=== PATIENT | female | born 1965 | race African-American/Black ===

== ENCOUNTER 2016-10-27 02:43 | Emergency (ER) | payer OTHER ==
[~2016-10-27] VITALS: Ht 152.4 cm; Wt 88.4 kg
[~2016-10-27 02:43] MED LIST: DURAGESIC100 MCG PO; IMODIUM A-D2 MG PO; K-DUR20 MEQ PO; LOMOTIL TABLET1 EACH PO; LOVENOX40 MG/0.4 PO; MAGNESIUM200 MG PO; NORVASC5 MG PO; PHENERGAN12.5 M1 PO; XANAX0.5 MG PO
[2016-10-27] MEDS ORDERED: MEDROL DOSEPAK4 MG PO (04:30)
[2016-10-27 04:43] VITALS: BP 160/70
== END 2016-10-27 04:44 | disposition home or self-care (01) ==
LOC: EME 02:43
DX: T78.40XA Allergy, unspecified, initial encounter (principal); L50.9 Urticaria, unspecified; I10 Essential (primary) hypertension; F17.200 Nicotine dependence, unspecified, uncomplicated; Z86.718 Personal history of other venous thrombosis and embolism; Z93.3 Colostomy status; Z87.442 Personal history of urinary calculi; Z88.6 Allergy status to analgesic agent; Z88.1 Allergy status to other antibiotic agents; Z71.6 Tobacco abuse counseling
CPT/HCPCS: 71010; 99281; 99283; J1100; J1200; J7040

== ENCOUNTER 2016-12-06 11:50 | Emergency (ER) | payer OTHER ==
[~2016-12-06] VITALS: Ht 152.4 cm; Wt 87.0 kg
[~2016-12-06 11:50] MED LIST changes: +MEDROL DOSEPAK4 MG PO
[2016-12-06 13:03] LABS: ADD MIUA? YES; BILIRUBIN NEGATIVE; BLOOD LARGE; COLOR YELLOW ((YELLOW)); GLUCOSE (STRIP) NEGATIVE; KETONES NEGATIVE; LEUKOCYTES NEGATIVE; NITRITE NEGATIVE; PROTEIN (STRIP) 30; SPECIFIC GRAVITY 1.023 (1.000-1.030); UROBILINOGEN 0.2 MG/DL (0.2-1.0)
[2016-12-06 13:32] LABS: BACTERIA NONE SEEN /HPF; EPITHELIAL CELLS RARE /HPF; MUCUS NONE SEEN /LPF; RED BLOOD CELLS 20-30 /HPF (0-5); UCUL ADDED? NO; WHITE BLOOD CELLS 0-5 /HPF (0-5)
[2016-12-06 13:34] LABS: HEMATOCRIT 38.5 % (36.0-46.0); MCH 26.9 PG (29.0-34.0); MCHC 32.5 G/DL (30.0-36.0); MCV 82.8 FL (83-99); MEAN PLAT.VOLUME 9.4 uM^3 (9.5-12.4); PLATELET COUNT 233 K/uL (156-360); RBC DIS.WIDTH-CV 15.1 % (11.8-14.6); RBC DIS.WIDTH-SD 45.2 % (39-53); RED BLOOD COUNT 4.65 M/uL (3.80-5.20); WHITE BLOOD COUNT 7.7 K/uL (4.1-10.2)
[2016-12-06 13:44] LABS: CHLORIDE 107 mEq/L (99-109); POTASSIUM 3.8 mEq/L (3.7-5.4); SODIUM 142 mEq/L (136-147)
[2016-12-06 13:46] LABS: GLUCOSE 98 mg/dL (70-99)
[2016-12-06 13:47] LABS: ANION GAP 10 MEQ/L (2-14)
[2016-12-06 13:48] LABS: TOTAL BILIRUBIN 0.5 mg/dL (0.0-1.0)
[2016-12-06 13:50] LABS: ALKALINE PHOSPHATASE 70 IU/L (3-129); GFR ESTIMATE (CALCULATED) > 59 mL/min/
[2016-12-06 13:51] LABS: UREA NITROGEN (BUN) 12 mg/dL (9-23)
[2016-12-06 13:53] LABS: LIPASE 38 U/L (1.0-51.0)
[2016-12-06 14:02] LABS: QUANTITATIVE HCG < 4.0 MIU/ML
[2016-12-06] MEDS ORDERED: KEFLEX500 MG PO (16:28)
[2016-12-06] MEDS ORDERED: PYRIDIUM100 MG PO (16:28)
[2016-12-06] MEDS ORDERED: OXAYDO5 MG PO (16:28)
[2016-12-06] MEDS ORDERED: PROMETHAZINE HC25 M1 PO (16:30)
[2016-12-06 17:01] VITALS: BP 141/80
== END 2016-12-06 17:15 | disposition home or self-care (01) ==
LOC: EME 11:50
DX: N20.0 Calculus of kidney (principal); I10 Essential (primary) hypertension; Z87.442 Personal history of urinary calculi; Z86.711 Personal history of pulmonary embolism; K50.90 Crohn's disease, unspecified, without complications; F17.200 Nicotine dependence, unspecified, uncomplicated; Z71.6 Tobacco abuse counseling; Z93.2 Ileostomy status
CPT/HCPCS: 74176; 80053; 81003; 83690; 84702; 85027; 87086; 99281; 99285; J0696; J2270; J7050; Q0169

== ENCOUNTER 2016-12-08 21:32 | Emergency (ER) | payer OTHER ==
[~2016-12-08] VITALS: Ht 152.4 cm; Wt 85.6 kg
[~2016-12-08 21:32] MED LIST changes: +KEFLEX500 MG PO; +OXAYDO5 MG PO; +PROMETHAZINE HC25 M1 PO; +PYRIDIUM100 MG PO
[2016-12-08 21:34] VITALS: BP 161/120
== END 2016-12-08 21:40 | disposition left against medical advice (07) ==
LOC: EME 21:32
DX: H57.9 Unspecified disorder of eye and adnexa (principal); Z53.21 Procedure and treatment not carried out due to patient leaving prior to being seen by health care provider
CPT/HCPCS: 99281; 99282

== ENCOUNTER 2017-01-09 01:01 | Inpatient (IN) | payer OTHER ==
[~2017-01-09] VITALS: Ht 152.4 cm; Wt 85.0 kg
[2017-01-09 03:14] LABS: EOSINOPHIL (%) 3.9 % (0-5); EOSINOPHIL COUNT 0.4 K/uL (0-0.3); HEMATOCRIT 28.2 % (36.0-46.0); IMMATURE GRANULOCYTE (%) 0.3 % (0.0-0.7); INSTRUMENT ABS NEUTROPHIL CT 5.1 K/uL; LYMPHOCYTE COUNT 2.8 K/uL (1.0-2.8); MCH 25.6 PG (29.0-34.0); MCHC 30.5 G/DL (30.0-36.0); MCV 83.9 FL (83-99); MEAN PLAT.VOLUME 9.6 uM^3 (9.5-12.4); MONOCYTE (%) 8.2 % (3-12); MONOCYTE COUNT 0.7 K/uL (0-0.8); NEUTROPHIL (%) 56.2 % (45-76); NEUTROPHIL COUNT 5.1 K/uL (1.8-6.4); PLATELET COUNT 332 K/uL (156-360); RBC DIS.WIDTH-CV 15.6 % (11.8-14.6); RBC DIS.WIDTH-SD 45.9 % (39-53); RED BLOOD COUNT 3.36 M/uL (3.80-5.20); WHITE BLOOD COUNT 9.1 K/uL (4.1-10.2)
[2017-01-09 03:23] LABS: CHLORIDE 104 mEq/L (99-109); POTASSIUM 2.9 mEq/L (3.7-5.4); SODIUM 142 mEq/L (136-147)
[2017-01-09 03:24] LABS: GLUCOSE 94 mg/dL (70-99)
[2017-01-09 03:26] LABS: ANION GAP 13 MEQ/L (2-14)
[2017-01-09 03:28] LABS: TOTAL BILIRUBIN 0.7 mg/dL (0.0-1.0)
[2017-01-09 03:28] LABS: GFR ESTIMATE (CALCULATED) > 59 mL/min/
[2017-01-09 03:29] LABS: UREA NITROGEN (BUN) 6 mg/dL (9-23)
[2017-01-09 03:29] LABS: ALKALINE PHOSPHATASE 61 IU/L (3-129)
[2017-01-09 03:31] LABS: DIRECT BILIRUBIN 0.4 mg/dL (0.0-0.3)
[2017-01-09 03:32] LABS: LIPASE 10 U/L (1.0-51.0)
[2017-01-09 03:47] LABS: INFLUENZA A VIRAL ANTIGEN NEGATIVE; INFLUENZA B VIRAL ANTIGEN NEGATIVE
[2017-01-09 03:57] LABS: ADD MIUA? YES; BILIRUBIN NEGATIVE; BLOOD MODERATE; COLOR YELLOW ((YELLOW)); GLUCOSE (STRIP) NEGATIVE; KETONES NEGATIVE; LEUKOCYTES MODERATE; NITRITE NEGATIVE; PROTEIN (STRIP) 30; SPECIFIC GRAVITY 1.009 (1.000-1.030); UROBILINOGEN 0.2 MG/DL (0.2-1.0)
[2017-01-09 04:17] LABS: EPITHELIAL CELLS 1+ /HPF; MUCUS RARE /LPF; RED BLOOD CELLS TNTC /HPF (0-5); WHITE BLOOD CELLS 20-30 /HPF (0-5)
[2017-01-09 04:18] LABS: BACTERIA 1+ /HPF; CASTS NONE SEEN /LPF; CRYSTALS NONE SEEN; UCUL ADDED? NO
[2017-01-09 12:11] LABS: MCV 84.1 FL (83-99)
[2017-01-09 12:24] LABS: CHLORIDE 108 mEq/L (99-109); POTASSIUM 3.1 mEq/L (3.7-5.4); SODIUM 142 mEq/L (136-147)
[2017-01-09 12:26] LABS: GLUCOSE 90 mg/dL (70-99)
[2017-01-09 12:27] LABS: ANION GAP 9 MEQ/L (2-14)
[2017-01-09 12:29] LABS: GFR ESTIMATE (CALCULATED) > 59 mL/min/
[2017-01-09 12:30] LABS: UREA NITROGEN (BUN) 5 mg/dL (9-23)
[2017-01-09] MEDS ORDERED: TAMSULOSIN HCL0.4 MG PO (12:52)
[2017-01-09] MEDS ORDERED: PYRIDIUM200 MG PO (12:52)
[2017-01-09] MEDS ORDERED: ALPRAZOLAM0.25 M2 PO (12:53)
[2017-01-09] MEDS ORDERED: AMLODIPINE BESY10 MG PO (12:54)
[2017-01-09] MEDS ORDERED: AZATHIOPRINE50 MG PO (12:54)
[2017-01-09] MEDS ORDERED: ELIQUIS2.5 MG PO (12:54)
[2017-01-09] MEDS ORDERED: CLONIDINE1 EACH TD (12:55)
[2017-01-09] MEDS ORDERED: FENTANYL1 EAC3 TD (12:56)
[2017-01-09] MEDS ORDERED: FUROSEMIDE20 MG PO (12:57)
[2017-01-09] MEDS ORDERED: HUMALOG100 UNIT/2 SC (12:58)
[2017-01-09] MEDS ORDERED: ANUSOL-HC21 GM PR (12:58)
[2017-01-09] MEDS ORDERED: LOPERAMIDE2 M1 PO (12:59)
[2017-01-09] MEDS ORDERED: MAGNESIUM400 MG PO (13:00)
[2017-01-09] MEDS ORDERED: PENTASA500 MG PO (13:01)
[2017-01-09] MEDS ORDERED: NYSTATIN60 GM TP (13:03)
[2017-01-09] MEDS ORDERED: BENICAR40 MG PO (13:03)
[2017-01-09] MEDS ORDERED: PANTOPRAZOLE SO40 MG PO (13:04)
[2017-01-09] MEDS ORDERED: ROXICODONE5 MG PO (13:04)
[2017-01-09] MEDS ORDERED: POTASSIUM CHLO20 ME2 PO (13:05)
[2017-01-09] MEDS ORDERED: PROMETHAZINE HC25 M1 PO (13:06)
[2017-01-09] MEDS ORDERED: ENTYVIO300 MG IV (13:06)
[2017-01-09] MEDS ORDERED: ZOLPIDEM TARTRA10 MG PO (13:07)
[2017-01-09] MEDS ORDERED: CLONIDINE HCL0.2 MG PO (13:10)
[2017-01-09 13:59] VITALS: BP 140/92
[2017-01-09 14:40] LABS: MAGNESIUM 1.5 mg/dL (1.3-2.7)
[2017-01-09 16:00] VITALS: BP 132/94
[2017-01-09 21:05] VITALS: BP 143/75
[2017-01-09 23:55] VITALS: BP 120/55
[2017-01-10 04:35] VITALS: BP 146/80
[2017-01-10 05:37] VITALS: BP 146/80
== END 2017-01-10 06:32 | disposition left against medical advice (07) | DRG 694 ==
LOC: EME 01:01 → EDOF 06:31 → 2EAST 06:31
PROVIDERS: Emergency Medicine; Internal Medicine; Nurse Practitioner Adult Health
DX: N20.0 Calculus of kidney (principal); K50.90 Crohn's disease, unspecified, without complications; E87.6 Hypokalemia; D64.9 Anemia, unspecified; I16.0 Hypertensive urgency; I10 Essential (primary) hypertension; G40.909 Epilepsy, unspecified, not intractable, without status epilepticus; F32.9 Major depressive disorder, single episode, unspecified; E66.9 Obesity, unspecified; F17.210 Nicotine dependence, cigarettes, uncomplicated; Z96.0 Presence of urogenital implants; Z86.711 Personal history of pulmonary embolism; Z95.828 Presence of other vascular implants and grafts; Z93.2 Ileostomy status; Z79.01 Long term (current) use of anticoagulants; Z88.2 Allergy status to sulfonamides; Z88.1 Allergy status to other antibiotic agents; Z87.442 Personal history of urinary calculi
CPT/HCPCS: 74176; 80048; 80048 91; 80053; 80076; 81003; 83605; 83690; 83735; 85014; 85018; 85025; 85027; 87040; 87502; 87651 90; 93005; 99281; 99285; J0696; J1200; J1644; J2060; J2270; J3010; J3475; J3480; J7030; J7050; J7500

== ENCOUNTER 2017-02-22 21:57 | Inpatient (IN) | payer OTHER ==
[~2017-02-22] VITALS: Ht 152.4 cm; Wt 80.0 kg
[~2017-02-22 21:57] MED LIST changes: +ALPRAZOLAM0.25 M2 PO; +AMLODIPINE BESY10 MG PO; +ANUSOL-HC21 GM PR; +AZATHIOPRINE50 MG PO; +BENICAR40 MG PO; +CLONIDINE HCL0.2 MG PO; +CLONIDINE1 EACH TD; +ELIQUIS2.5 MG PO; +ENTYVIO300 MG IV; +FENTANYL1 EAC3 TD; +FUROSEMIDE20 MG PO; +HUMALOG100 UNIT/2 SC; +LOPERAMIDE2 M1 PO; +MAGNESIUM400 MG PO; +NYSTATIN60 GM TP; +PANTOPRAZOLE SO40 MG PO; +PENTASA500 MG PO; +POTASSIUM CHLO20 ME2 PO; +PYRIDIUM200 MG PO; +ROXICODONE5 MG PO; +TAMSULOSIN HCL0.4 MG PO; +ZOLPIDEM TARTRA10 MG PO
[2017-02-22 23:55] LABS: HEMATOCRIT 37.2 % (36.0-46.0); MCH 27.3 PG (29.0-34.0); MCHC 32.3 G/DL (30.0-36.0); MCV 84.7 FL (83-99); MEAN PLAT.VOLUME 9.4 uM^3 (9.5-12.4); PLATELET COUNT 184 K/uL (156-360); RBC DIS.WIDTH-SD 55.4 % (39-53); RED BLOOD COUNT 4.39 M/uL (3.80-5.20); WHITE BLOOD COUNT 9.7 K/uL (4.1-10.2)
[2017-02-22 23:56] LABS: TROP-I INTERPRETATION NEGATIVE; TROPONIN-I < 0.01 ng/mL (0.0-0.30)
[2017-02-22 23:57] LABS: INTER. NORMALIZED RATIO 1.2; PROTHROMBIN TIME 12.7 (9.2-11.2); PTT 22.7 (25-32)
[2017-02-23 00:06] LABS: CHLORIDE 108 mEq/L (99-109); SODIUM 142 mEq/L (136-147)
[2017-02-23 00:08] LABS: MAGNESIUM 0.9 mg/dL (1.3-2.7); POTASSIUM 2.4 mEq/L (3.7-5.4)
[2017-02-23 00:09] LABS: GLUCOSE 89 mg/dL (70-99)
[2017-02-23 00:10] LABS: ANION GAP 13 MEQ/L (2-14)
[2017-02-23 00:12] LABS: ALKALINE PHOSPHATASE 71 IU/L (3-129); GFR ESTIMATE (CALCULATED) > 59 mL/min/
[2017-02-23 00:13] LABS: UREA NITROGEN (BUN) 8 mg/dL (9-23)
[2017-02-23 00:16] LABS: LIPASE 14 U/L (1.0-51.0)
[2017-02-23 00:53] LABS: D-DIMER ELISA 2.28 mg/L FEU (< 0.57)
[2017-02-23 01:40] LABS: ADD MIUA? YES; BILIRUBIN NEGATIVE; BLOOD SMALL; COLOR STRAW ((YELLOW)); GLUCOSE (STRIP) NEGATIVE; KETONES NEGATIVE; LEUKOCYTES NEGATIVE; NITRITE NEGATIVE; PROTEIN (STRIP) NEGATIVE; SPECIFIC GRAVITY 1.008 (1.000-1.030); UROBILINOGEN 0.2 MG/DL (0.2-1.0)
[2017-02-23 01:43] LABS: BACTERIA 1+ /HPF; EPITHELIAL CELLS RARE /HPF; MUCUS NONE SEEN /LPF; RED BLOOD CELLS 0-5 /HPF (0-5); UCUL ADDED? NO; WHITE BLOOD CELLS 0-5 /HPF (0-5)
[2017-02-23 04:55] LABS: AMPHETAMINES QUANT VALUE 0 NG/ML; BARBITUATES QUANT VALUE 0 NG/ML; BENZODIAZEPINES QUANT VALUE 0 NG/ML; BENZODIAZEPINES, URINE SCREEN Negative (200 ng/mL); MARIJUANA QUANT VALUE 0 NG/ML; OPIATES QUANTITATIVE VALUE 0 NG/ML; PHENCYCLIDINE QUANT VALUE 0 NG/ML
[2017-02-23 05:20] VITALS: BP 91/40
[2017-02-23 07:16] LABS: METH RESISTANT S AUREUS PCR NEGATIVE (NEGATIVE); PROBE CHECK PASS; SPECIMEN PROCESSING CONTROL PASS
[2017-02-23 08:00] VITALS: BP 132/55
[2017-02-23 09:42] LABS: TROP-I INTERPRETATION NEGATIVE; TROPONIN-I < 0.01 ng/mL (0.0-0.30)
[2017-02-23 09:51] LABS: MAGNESIUM 1.7 mg/dL (1.3-2.7)
[2017-02-23] MEDS ORDERED: COUMADIN10 MG PO (10:01)
[2017-02-23 11:08] LABS: ANION GAP 15 MEQ/L (2-14); CHLORIDE 104 MEQ/L (99-109); SAMPLE HEMOLYSIS CHECK 0; SAMPLE ICTERIC CHECK 0; SAMPLE LIPEMIA CHECK 0; SODIUM 143 MEQ/L (136-147)
[2017-02-23 11:14] LABS: GFR ESTIMATE (CALCULATED) > 59 mL/min/; GLUCOSE 93 mg/dL (70-99); HDL CHOLESTEROL 43 MG/DL (Desirable>=50); LDL CHOLESTEROL 37 mg/dL (Desirable<100); NON-HDL CHOLESTEROL 52 mg/dL (Desirable<160); TOTAL CHOLESTEROL 95 mg/dL (Desirable<200); TRIGLYCERIDES 74 MG/DL (Normal: <150); UREA NITROGEN (BUN) 8 mg/dL (9-23)
[2017-02-23 11:25] LABS: POTASSIUM 2.9 MEQ/L (3.7-5.4)
[2017-02-23 12:00] VITALS: BP 125/85
[2017-02-23 13:19] LABS: MAGNESIUM 1.7 mg/dL (1.3-2.7)
[2017-02-23 13:20] LABS: CHLORIDE 105 mEq/L (99-109); POTASSIUM 3.4 mEq/L (3.7-5.4); SODIUM 140 mEq/L (136-147)
[2017-02-23 13:22] LABS: GLUCOSE 94 mg/dL (70-99)
[2017-02-23 13:23] LABS: ANION GAP 13 MEQ/L (2-14)
[2017-02-23 13:25] LABS: GFR ESTIMATE (CALCULATED) > 59 mL/min/
[2017-02-23 13:26] LABS: UREA NITROGEN (BUN) 8 mg/dL (9-23)
[2017-02-23 13:30] LABS: TROP-I INTERPRETATION NEGATIVE; TROPONIN-I < 0.01 ng/mL (0.0-0.30)
[2017-02-23 13:35] LABS: C DIFF TOXIN NEGATIVE (NEGATIVE)
[2017-02-23 13:42] LABS: PROBE CHECK PASS; SPECIMEN PROCESSING CONTROL PASS
[2017-02-23 16:00] VITALS: BP 156/75
[2017-02-23 18:18] LABS: INTER. NORMALIZED RATIO 1.3; PROTHROMBIN TIME 13.4 (9.2-11.2)
[2017-02-23 20:00] VITALS: BP 132/78
[2017-02-23 22:32] VITALS: BP 158/88
[2017-02-24 03:32] VITALS: BP 128/73
[2017-02-24 06:52] VITALS: BP 126/74
[2017-02-24 07:54] LABS: HEMATOCRIT 36.1 % (36.0-46.0); MCH 27.1 PG (29.0-34.0); MCV 87.4 FL (83-99); PLATELET COUNT 169 K/uL (156-360); RBC DIS.WIDTH-CV 18.4 % (11.8-14.6); RBC DIS.WIDTH-SD 58.8 % (39-53); RED BLOOD COUNT 4.13 M/uL (3.80-5.20); WHITE BLOOD COUNT 6.9 K/uL (4.1-10.2)
[2017-02-24 08:15] LABS: ANION GAP 8 MEQ/L (2-14); CHLORIDE 105 MEQ/L (99-109); GFR ESTIMATE (CALCULATED) > 59 mL/min/; GLUCOSE 95 mg/dL (70-99); MAGNESIUM 1.8 mg/dl (1.3-2.7); POTASSIUM 3.3 MEQ/L (3.7-5.4); SAMPLE HEMOLYSIS CHECK 0; SAMPLE ICTERIC CHECK 0; SAMPLE LIPEMIA CHECK 0; SODIUM 141 MEQ/L (136-147); UREA NITROGEN (BUN) 10 mg/dL (9-23)
[2017-02-24 08:39] LABS: INTER. NORMALIZED RATIO 1.5; PROTHROMBIN TIME 15.7 (9.2-11.2)
[2017-02-24] MEDS ORDERED: KEFLEX500 MG PO (08:52)
== END 2017-02-24 09:26 | disposition home health service (06) | DRG 690 ==
LOC: EME 21:57 → EDOF 02-23 03:55 → 4WEST 02-23 03:55 → 2EAST 02-23 22:33
PROVIDERS: Emergency Medicine; Hospitalist; Internal Medicine; Physician Assistant Medical
DX: N10 Acute pyelonephritis (principal); E83.42 Hypomagnesemia; E87.6 Hypokalemia; K50.90 Crohn's disease, unspecified, without complications; E87.8 Other disorders of electrolyte and fluid balance, not elsewhere classified; R06.02 Shortness of breath; R32 Unspecified urinary incontinence; R94.31 Abnormal electrocardiogram [ECG] [EKG]; I10 Essential (primary) hypertension; G43.909 Migraine, unspecified, not intractable, without status migrainosus; F32.9 Major depressive disorder, single episode, unspecified; E66.9 Obesity, unspecified; D64.9 Anemia, unspecified; R07.2 Precordial pain; R00.0 Tachycardia, unspecified; I50.9 Heart failure, unspecified; R31.9 Hematuria, unspecified; E86.0 Dehydration; R11.2 Nausea with vomiting, unspecified; Z86.711 Personal history of pulmonary embolism; Z79.01 Long term (current) use of anticoagulants; Z86.718 Personal history of other venous thrombosis and embolism; Z88.3 Allergy status to other anti-infective agents; Z68.34 Body mass index [BMI] 34.0-34.9, adult
CPT/HCPCS: 71020; 71275; 80048; 80048 91; 80053; 80061; 80306 90; 81003; 83690; 83735; 83880; 84100; 84484; 85027; 85379; 85610; 85730; 87086; 87493; 87641; 93005; 94799; 99281; 99285; J0696; J1200; J1630; J1650; J1940; J2060; J2270; J3475; J3480; J7030; J7050

== ENCOUNTER 2017-06-06 10:36 | Inpatient (IN) | payer OTHER ==
[~2017-06-06] VITALS: Ht 152.4 cm; Wt 73.6 kg
[~2017-06-06 10:36] MED LIST changes: +COUMADIN10 MG PO; -ENTYVIO300 MG IV; +MICRO-K10 ME2 PO; -POTASSIUM CHLO20 ME2 PO
[2017-06-06 11:39] LABS: ADD MIUA? YES; BILIRUBIN NEGATIVE; BLOOD LARGE; COLOR YELLOW ((YELLOW)); GLUCOSE (STRIP) NEGATIVE; KETONES NEGATIVE; LEUKOCYTES SMALL; NITRITE POSITIVE; PROTEIN (STRIP) NEGATIVE; SPECIFIC GRAVITY 1.012 (1.000-1.030); UROBILINOGEN 0.2 MG/DL (0.2-1.0)
[2017-06-06 11:48] LABS: BACTERIA RARE /HPF; EPITHELIAL CELLS RARE /HPF; MUCUS TRACE /LPF; RED BLOOD CELLS TNTC /HPF (0-5); UCUL ADDED? YES; WHITE BLOOD CELLS TNTC /HPF (0-5)
[2017-06-06 12:50] LABS: EOSINOPHIL (%) 1.2 % (0-5); EOSINOPHIL COUNT 0.1 K/uL (0-0.3); HEMATOCRIT 30.6 % (36.0-46.0); IMMATURE GRANULOCYTE (%) 0.3 % (0.0-0.7); INSTRUMENT ABS NEUTROPHIL CT 6.3 K/uL; LYMPHOCYTE COUNT 2.5 K/uL (1.0-2.8); MCH 28.3 PG (29.0-34.0); MCHC 33.3 G/DL (30.0-36.0); MCV 84.8 FL (83-99); MEAN PLAT.VOLUME 8.9 uM^3 (9.5-12.4); MONOCYTE (%) 5.6 % (3-12); MONOCYTE COUNT 0.5 K/uL (0-0.8); NEUTROPHIL (%) 66.6 % (45-76); NEUTROPHIL COUNT 6.3 K/uL (1.8-6.4); PLATELET COUNT 354 K/uL (156-360); RBC DIS.WIDTH-CV 13.7 % (11.8-14.6); RBC DIS.WIDTH-SD 42.5 % (39-53); RED BLOOD COUNT 3.61 M/uL (3.80-5.20); WHITE BLOOD COUNT 9.5 K/uL (4.1-10.2)
[2017-06-06 13:01] LABS: CHLORIDE 105 mEq/L (99-109); POTASSIUM 2.5 mEq/L (3.7-5.4); SODIUM 144 mEq/L (136-147)
[2017-06-06 13:03] LABS: GLUCOSE 83 mg/dL (70-99)
[2017-06-06 13:04] LABS: ANION GAP 12 MEQ/L (2-14)
[2017-06-06 13:05] LABS: TOTAL BILIRUBIN 0.4 mg/dL (0.0-1.0)
[2017-06-06 13:07] LABS: ALKALINE PHOSPHATASE 68 IU/L (3-129); GFR ESTIMATE (CALCULATED) > 59 mL/min/
[2017-06-06 13:08] LABS: UREA NITROGEN (BUN) 5 mg/dL (9-23)
[2017-06-06 13:10] LABS: LIPASE 44 U/L (1.0-51.0)
[2017-06-06 14:27] LABS: MAGNESIUM 1.4 mg/dL (1.3-2.7)
[2017-06-06] MEDS ORDERED: WARFARIN SODIU7.5 MG PO (15:15)
[2017-06-06] MEDS ORDERED: MAGNESIUM IV (15:21)
[2017-06-06] MEDS ORDERED: POTASSIUM IV (15:21)
[2017-06-06 15:55] LABS: PROTHROMBIN TIME 84.6 SEC (10.2-12.9)
[2017-06-06 16:12] VITALS: BP 164/105
[2017-06-06 16:14] LABS: INTER. NORMALIZED RATIO 7.1
[2017-06-06] MEDS ORDERED: Magic Mouthwash PO (16:41)
[2017-06-06] MEDS ORDERED: DIPHENHYDR50 MG/1 M2 IM (16:42)
[2017-06-06] MEDS ORDERED: ENTYVIO300 MG IV (16:43)
[2017-06-06 19:50] VITALS: BP 180/92
[2017-06-06 22:19] LABS: C DIFF TOXIN NEGATIVE (NEGATIVE)
[2017-06-06 22:26] LABS: PROBE CHECK PASS; SPECIMEN PROCESSING CONTROL PASS
[2017-06-06 23:40] VITALS: BP 138/73
[2017-06-07 03:57] VITALS: BP 152/75
[2017-06-07 05:57] LABS: INTER. NORMALIZED RATIO 4.7; PROTHROMBIN TIME 55.5 SEC (10.2-12.9)
[2017-06-07 06:04] LABS: ANION GAP 10 MEQ/L (2-14); CHLORIDE 103 MEQ/L (99-109); GFR ESTIMATE (CALCULATED) > 59 mL/min/; POTASSIUM 2.9 MEQ/L (3.7-5.4); SAMPLE HEMOLYSIS CHECK 0; SAMPLE ICTERIC CHECK 0; SAMPLE LIPEMIA CHECK 0; SODIUM 144 MEQ/L (136-147); UREA NITROGEN (BUN) 2 mg/dL (9-23)
[2017-06-07 06:24] LABS: GLUCOSE 104 mg/dL (70-99)
[2017-06-07 09:05] VITALS: BP 160/92
[2017-06-07 11:23] VITALS: BP 161/98
[2017-06-07 20:36] LABS: ANION GAP 14 MEQ/L (2-14); CHLORIDE 99 MEQ/L (99-109); GFR ESTIMATE (CALCULATED) > 59 mL/min/; GLUCOSE 111 mg/dL (70-99); MAGNESIUM 1.4 mg/dl (1.3-2.7); POTASSIUM 2.8 MEQ/L (3.7-5.4); SAMPLE HEMOLYSIS CHECK 0; SAMPLE ICTERIC CHECK 0; SAMPLE LIPEMIA CHECK 0; SODIUM 141 MEQ/L (136-147); UREA NITROGEN (BUN) 3 mg/dL (9-23)
[2017-06-08 07:00] LABS: EOSINOPHIL (%) 0.7 % (0-5); EOSINOPHIL COUNT 0.1 K/uL (0-0.3); HEMATOCRIT 30.6 % (36.0-46.0); IMMATURE GRANULOCYTE (%) 0.6 % (0.0-0.7); IMMATURE GRANULOCYTE COUNT 0.1 K/uL; LYMPHOCYTE COUNT 1.9 K/uL (1.0-2.8); MCHC 32.4 G/DL (30.0-36.0); MCV 86.7 FL (83-99); MEAN PLAT.VOLUME 9.1 uM^3 (9.5-12.4); MONOCYTE (%) 11.4 % (3-12); MONOCYTE COUNT 1.2 K/uL (0-0.8); NEUTROPHIL (%) 68.2 % (45-76); PLATELET COUNT 312 K/uL (156-360); RBC DIS.WIDTH-CV 13.7 % (11.8-14.6); RBC DIS.WIDTH-SD 42.6 % (39-53); RED BLOOD COUNT 3.53 M/uL (3.80-5.20); WHITE BLOOD COUNT 10.2 K/uL (4.1-10.2)
[2017-06-08 07:12] LABS: INTER. NORMALIZED RATIO 2.9; PROTHROMBIN TIME 33.6 SEC (10.2-12.9)
[2017-06-08 07:35] LABS: ALKALINE PHOSPHATASE 65 IU/L (3-129); ANION GAP 10 MEQ/L (2-14); CHLORIDE 100 MEQ/L (99-109); GFR ESTIMATE (CALCULATED) > 59 mL/min/; GLUCOSE 92 mg/dL (70-99); MAGNESIUM 1.5 mg/dl (1.3-2.7); POTASSIUM 3.2 MEQ/L (3.7-5.4); SAMPLE HEMOLYSIS CHECK 0; SAMPLE ICTERIC CHECK 0; SAMPLE LIPEMIA CHECK 0; SODIUM 143 MEQ/L (136-147); TOTAL BILIRUBIN 1.2 MG/DL (0.0-1.0); UREA NITROGEN (BUN) 3 mg/dL (9-23)
[2017-06-08 07:37] VITALS: BP 147/77
[2017-06-08 11:41] VITALS: BP 137/79
[2017-06-08 13:21] LABS: ANION GAP 7 MEQ/L (2-14); CHLORIDE 99 MEQ/L (99-109); GFR ESTIMATE (CALCULATED) > 59 mL/min/; GLUCOSE 103 mg/dL (70-99); POTASSIUM 3.2 MEQ/L (3.7-5.4); SAMPLE HEMOLYSIS CHECK 0; SAMPLE ICTERIC CHECK 0; SAMPLE LIPEMIA CHECK 0; SODIUM 140 MEQ/L (136-147); UREA NITROGEN (BUN) 3 mg/dL (9-23)
[2017-06-08 16:04] VITALS: BP 142/88
[2017-06-08 20:00] VITALS: BP 140/84
[2017-06-09] VITALS: BP 144/86
[2017-06-09 06:15] LABS: EOSINOPHIL COUNT 0.1 K/uL (0-0.3); IMMATURE GRANULOCYTE (%) 0.6 % (0.0-0.7); INSTRUMENT ABS NEUTROPHIL CT 4.4 K/uL; LYMPHOCYTE COUNT 1.9 K/uL (1.0-2.8); MCHC 31.7 G/DL (30.0-36.0); MCV 88.4 FL (83-99); MONOCYTE (%) 8.5 % (3-12); MONOCYTE COUNT 0.6 K/uL (0-0.8); NEUTROPHIL (%) 62.4 % (45-76); NEUTROPHIL COUNT 4.4 K/uL (1.8-6.4); RBC DIS.WIDTH-CV 13.7 % (11.8-14.6); RBC DIS.WIDTH-SD 44.6 % (39-53); RED BLOOD COUNT 3.28 M/uL (3.80-5.20); WHITE BLOOD COUNT 7.1 K/uL (4.1-10.2)
[2017-06-09 06:40] LABS: ANION GAP 7 MEQ/L (2-14); CHLORIDE 103 MEQ/L (99-109); GFR ESTIMATE (CALCULATED) > 59 mL/min/; GLUCOSE 106 mg/dL (70-99); POTASSIUM 3.6 MEQ/L (3.7-5.4); SAMPLE HEMOLYSIS CHECK 0; SAMPLE ICTERIC CHECK 0; SAMPLE LIPEMIA CHECK 0; SODIUM 141 MEQ/L (136-147); UREA NITROGEN (BUN) 4 mg/dL (9-23)
[2017-06-09 06:41] LABS: MAGNESIUM 1.9 mg/dl (1.3-2.7)
[2017-06-09 06:47] LABS: HEMATOLOGY COMMENT 1 SN; MACROCYTES 1+; PLAT.SUFFICIENCY ADEQUATE; PLATELET CLUMPS PRESENT - PLATELET COUNT APPEARS ADQ.; PLATELET COUNT UNABLE TO REPORT K/uL (156-360); POIKILOCYTOSIS 1+; POLYCHROMASIA 1+
[2017-06-09 07:33] LABS: INTER. NORMALIZED RATIO 2.4; PROTHROMBIN TIME 27.9 SEC (10.2-12.9)
[2017-06-09 12:00] VITALS: BP 167/99
[2017-06-09] MEDS ORDERED: PROMETHAZINE HC25 M1 PO (13:08)
[2017-06-09] MEDS ORDERED: NITROFURANTOIN100 M3 PO (13:08)
== END 2017-06-09 14:29 | disposition home or self-care (01) | DRG 690 ==
LOC: EME 10:36 → EDOF 13:44 → 5WEST 13:44 → ENRESERV 13:50 → 5WEST 16:07 → ENRESERV 06-07 11:35 → CANRESERV 06-08 12:31 → ENRESERV 06-08 12:31 → 5WEST 06-09 14:29
PROVIDERS: Emergency Medicine; Internal Medicine; Physician Assistant Medical
DX: N39.0 Urinary tract infection, site not specified (principal); K50.90 Crohn's disease, unspecified, without complications; K90.9 Intestinal malabsorption, unspecified; D68.62 Lupus anticoagulant syndrome; D64.9 Anemia, unspecified; E87.6 Hypokalemia; F17.210 Nicotine dependence, cigarettes, uncomplicated; I10 Essential (primary) hypertension; R10.84 Generalized abdominal pain; F32.9 Major depressive disorder, single episode, unspecified; G43.909 Migraine, unspecified, not intractable, without status migrainosus; K21.9 Gastro-esophageal reflux disease without esophagitis; R79.1 Abnormal coagulation profile; Z16.24 Resistance to multiple antibiotics; Z16.12 Extended spectrum beta lactamase (ESBL) resistance; R31.9 Hematuria, unspecified; K76.0 Fatty (change of) liver, not elsewhere classified; G40.909 Epilepsy, unspecified, not intractable, without status epilepticus; Z79.01 Long term (current) use of anticoagulants; Z86.711 Personal history of pulmonary embolism; Z86.718 Personal history of other venous thrombosis and embolism; Z87.442 Personal history of urinary calculi; Z88.1 Allergy status to other antibiotic agents; Z87.440 Personal history of urinary (tract) infections; Z83.79 Family history of other diseases of the digestive system; E87.8 Other disorders of electrolyte and fluid balance, not elsewhere classified
CPT/HCPCS: 71010; 74176; 80048; 80048 91; 80053; 81003; 83690; 83735; 85025; 85610; 87040; 87077; 87086; 87177; 87186; 87329; 87493; 87506; 93005; 99281; 99285; G0378; J0696; J1200; J2270; J3475; J3480; J7030; J7050; J7500; Q0169; S0030

== ENCOUNTER 2017-06-18 08:40 | Emergency (ER) | payer OTHER ==
[~2017-06-18] VITALS: Ht 152.4 cm; Wt 75.6 kg
[~2017-06-18 08:40] MED LIST changes: +DIPHENHYDR50 MG/1 M2 IM; +ENTYVIO300 MG IV; +MAGNESIUM IV; +Magic Mouthwash PO; +NITROFURANTOIN100 M3 PO; +POTASSIUM IV; +WARFARIN SODIU7.5 MG PO
[2017-06-18 09:25] LABS: HEMATOCRIT 36.6 % (36.0-46.0); MCH 27.3 PG (29.0-34.0); MCHC 30.3 G/DL (30.0-36.0); MCV 89.9 FL (83-99); PLATELET COUNT 325 K/uL (156-360); RBC DIS.WIDTH-CV 15.1 % (11.8-14.6); RBC DIS.WIDTH-SD 48.9 % (39-53); WHITE BLOOD COUNT 7.8 K/uL (4.1-10.2)
[2017-06-18 09:27] LABS: RED BLOOD COUNT 4.07 M/uL (3.80-5.20)
[2017-06-18 09:27] LABS: ADD MIUA? YES; BILIRUBIN NEGATIVE; BLOOD SMALL; COLOR YELLOW ((YELLOW)); GLUCOSE (STRIP) NEGATIVE; KETONES NEGATIVE; LEUKOCYTES TRACE; NITRITE POSITIVE; PROTEIN (STRIP) NEGATIVE; SPECIFIC GRAVITY 1.018 (1.000-1.030); UROBILINOGEN 0.2 MG/DL (0.2-1.0)
[2017-06-18 09:37] LABS: CHLORIDE 109 mEq/L (99-109); POTASSIUM 3.3 mEq/L (3.7-5.4); SODIUM 142 mEq/L (136-147)
[2017-06-18 09:38] LABS: BACTERIA 1+ /HPF; EPITHELIAL CELLS 2+ /HPF; MUCUS 1+ /LPF; WHITE BLOOD CELLS 30-40 /HPF (0-5)
[2017-06-18 09:38] LABS: GLUCOSE 88 mg/dL (70-99)
[2017-06-18 09:39] LABS: ANION GAP 11 MEQ/L (2-14)
[2017-06-18 09:41] LABS: GFR ESTIMATE (CALCULATED) > 59 mL/min/
[2017-06-18 09:42] LABS: UREA NITROGEN (BUN) 6 mg/dL (9-23)
[2017-06-18 10:43] LABS: TOTAL BILIRUBIN 0.8 mg/dL (0.0-1.0)
[2017-06-18 10:44] LABS: ALKALINE PHOSPHATASE 73 IU/L (3-129)
[2017-06-18 10:48] LABS: LIPASE 58 U/L (1.0-51.0)
[2017-06-18 11:32] LABS: ADD MIUA? YES; BILIRUBIN NEGATIVE; BLOOD SMALL; COLOR YELLOW ((YELLOW)); GLUCOSE (STRIP) NEGATIVE; KETONES NEGATIVE; LEUKOCYTES TRACE; NITRITE POSITIVE; PROTEIN (STRIP) NEGATIVE; SPECIFIC GRAVITY 1.017 (1.000-1.030); UROBILINOGEN 0.2 MG/DL (0.2-1.0)
[2017-06-18 11:48] LABS: BACTERIA 2+ /HPF; CASTS NONE SEEN /LPF; CRYSTALS NONE SEEN; EPITHELIAL CELLS RARE /HPF; MUCUS NONE SEEN /LPF; RED BLOOD CELLS NONE SEEN /HPF (0-5); UCUL ADDED? YES
[2017-06-18 13:44] VITALS: BP 120/66
== END 2017-06-18 13:44 | disposition home or self-care (01) ==
LOC: EME 08:40
PROVIDERS: Emergency Medicine
DX: N15.9 Renal tubulo-interstitial disease, unspecified (principal); B96.1 Klebsiella pneumoniae [K. pneumoniae] as the cause of diseases classified elsewhere; I10 Essential (primary) hypertension; Z87.442 Personal history of urinary calculi; K50.90 Crohn's disease, unspecified, without complications; F17.200 Nicotine dependence, unspecified, uncomplicated; Z86.711 Personal history of pulmonary embolism; Z79.01 Long term (current) use of anticoagulants; Z88.6 Allergy status to analgesic agent; Z88.2 Allergy status to sulfonamides
CPT/HCPCS: 74020; 80048; 80053; 81003; 83690; 85027; 87077; 87086; 87186; 99281; 99284; J1200; J1335; J2270; J7050

== ENCOUNTER 2017-10-27 02:04 | Emergency (ER) | payer OTHER ==
[~2017-10-27] VITALS: Ht 152.4 cm; Wt 76.3 kg
[2017-10-27 02:07] VITALS: BP 139/85
== END 2017-10-27 02:15 | disposition left against medical advice (07) ==
LOC: EME 02:04
DX: R07.9 Chest pain, unspecified (principal); Z53.21 Procedure and treatment not carried out due to patient leaving prior to being seen by health care provider
CPT/HCPCS: 80048; 84484; 85027; 93005

== ENCOUNTER 2017-10-27 07:12 | Emergency (ER) | payer OTHER ==
[~2017-10-27] VITALS: Ht 152.4 cm; Wt 74.7 kg
[2017-10-27 07:42] LABS: APPEARANCE CLEAR ((CLEAR)); BILIRUBIN NEGATIVE; BLOOD SMALL; COLOR YELLOW ((YELLOW)); GLUCOSE (STRIP) NEGATIVE; KETONES NEGATIVE; LEUKOCYTES SMALL; NITRITE POSITIVE; PROTEIN (STRIP) NEGATIVE; SPECIFIC GRAVITY 1.013 (1.000-1.030); UROBILINOGEN 0.2 MG/DL (0.2-1.0)
[2017-10-27 07:53] LABS: BACTERIA 2+ /HPF; EPITHELIAL CELLS RARE /HPF; MUCUS TRACE /LPF; RED BLOOD CELLS 0-5 /HPF (0-5); UCUL ADDED? YES; WHITE BLOOD CELLS 15-20 /HPF (0-5)
[2017-10-27 07:59] LABS: BASOPHIL (%) 0.3 % (0-1); EOSINOPHIL (%) 0.4 % (0-5); HEMATOCRIT 34.8 % (36.0-46.0); HEMOGLOBIN 11.7 G/DL (11.9-15.5); IMMATURE GRANULOCYTE (%) 1.2 % (0.0-0.7); LYMPHOCYTE (%) 5.1 % (15-42); LYMPHOCYTE COUNT 0.5 K/uL (1.0-2.8); MCH 29.5 PG (29.0-34.0); MCHC 33.6 G/DL (30.0-36.0); MCV 87.9 FL (83-99); MONOCYTE (%) 1.8 % (3-12); MONOCYTE COUNT 0.2 K/uL (0-0.8); NEUTROPHIL (%) 91.2 % (45-76); NEUTROPHIL COUNT 8.2 K/uL (1.8-6.4); PLATELET COUNT 166 K/uL (156-360); RBC DIS.WIDTH-CV 14.1 % (11.8-14.6); RBC DIS.WIDTH-SD 44.9 % (39-53); RED BLOOD COUNT 3.96 M/uL (3.80-5.20)
[2017-10-27 08:06] LABS: ALBUMIN 3.4 g/dL (3.2-4.8); CHLORIDE 108 mEq/L (99-109); POTASSIUM 2.9 mEq/L (3.7-5.4); SODIUM 140 mEq/L (136-147)
[2017-10-27 08:08] LABS: GLUCOSE 104 mg/dL (70-99)
[2017-10-27 08:10] LABS: TOTAL BILIRUBIN 1.2 mg/dL (0.0-1.0)
[2017-10-27 08:12] LABS: ALKALINE PHOSPHATASE 161 IU/L (3-129); CREATININE 0.7 mg/dL (0.6-1.3); GFR ESTIMATE (CALCULATED) > 59 mL/min/
[2017-10-27 08:13] LABS: UREA NITROGEN (BUN) 6 mg/dL (9-23)
[2017-10-27 08:14] LABS: AST (GOT) 91 IU/L (2-34)
[2017-10-27 08:15] LABS: ALT (GPT) 70 IU/L (3-49)
[2017-10-27 08:28] LABS: TOTAL PROTEIN 6.3 g/dL (6.4-8.3)
[2017-10-27 14:54] VITALS: BP 149/91
== END 2017-10-27 14:58 | disposition home or self-care (01) ==
LOC: EME 07:12
PROVIDERS: Physician Assistant
DX: N39.0 Urinary tract infection, site not specified (principal); M54.5 Low back pain; G89.29 Other chronic pain; E87.6 Hypokalemia; I10 Essential (primary) hypertension; J45.909 Unspecified asthma, uncomplicated; K21.9 Gastro-esophageal reflux disease without esophagitis; K50.90 Crohn's disease, unspecified, without complications; F41.9 Anxiety disorder, unspecified; F32.9 Major depressive disorder, single episode, unspecified; F17.200 Nicotine dependence, unspecified, uncomplicated; Z87.442 Personal history of urinary calculi; Z90.49 Acquired absence of other specified parts of digestive tract; Z86.711 Personal history of pulmonary embolism; Z79.01 Long term (current) use of anticoagulants; Z93.2 Ileostomy status; Z88.2 Allergy status to sulfonamides; Z88.6 Allergy status to analgesic agent; Z88.1 Allergy status to other antibiotic agents; Z88.8 Allergy status to other drugs, medicaments and biological substances
CPT/HCPCS: 71045; 74177; 80053; 81003; 85025; 85610; 87077; 87086; 87186; 87502; 99281; 99285; J0278; J3010; J7050; J7120

== ENCOUNTER 2018-03-18 08:41 | Emergency (ER) | payer OTHER ==
[~2018-03-18] VITALS: Ht 167.6 cm; Wt 75.3 kg
[2018-03-18 09:08] LABS: APPEARANCE SL.HAZY ((CLEAR)); BILIRUBIN NEGATIVE; BLOOD SMALL; COLOR YELLOW ((YELLOW)); GLUCOSE (STRIP) NEGATIVE; KETONES NEGATIVE; LEUKOCYTES SMALL; NITRITE NEGATIVE; PROTEIN (STRIP) NEGATIVE; SPECIFIC GRAVITY 1.018 (1.000-1.030); UROBILINOGEN 0.2 MG/DL (0.2-1.0)
[2018-03-18 09:12] LABS: BACTERIA RARE /HPF; EPITHELIAL CELLS 2+ /HPF; MUCUS TRACE /LPF; UCUL ADDED? YES
[2018-03-18 09:31] LABS: HEMATOCRIT 36.4 % (36.0-46.0); HEMOGLOBIN 12.1 G/DL (11.9-15.5); MCH 29.4 PG (29.0-34.0); MCHC 33.2 G/DL (30.0-36.0); MCV 88.6 FL (83-99); PLATELET COUNT 194 K/uL (156-360); RBC DIS.WIDTH-CV 13.9 % (11.8-14.6); RBC DIS.WIDTH-SD 44.8 % (39-53); RED BLOOD COUNT 4.11 M/uL (3.80-5.20); WHITE BLOOD COUNT 10.5 K/uL (4.1-10.2)
[2018-03-18 09:54] LABS: CHLORIDE 108 mEq/L (99-109); POTASSIUM 3.1 mEq/L (3.7-5.4); SODIUM 140 mEq/L (136-147)
[2018-03-18 09:56] LABS: GLUCOSE 97 mg/dL (70-99)
[2018-03-18 10:00] LABS: CREATININE 0.7 mg/dL (0.6-1.3); GFR ESTIMATE (CALCULATED) > 59 mL/min/
[2018-03-18 10:01] LABS: UREA NITROGEN (BUN) 5 mg/dL (9-23)
[2018-03-18] MEDS ORDERED: PREDNISONE5 M1 PO (10:41)
[2018-03-18 10:53] VITALS: BP 130/89
== END 2018-03-18 10:54 | disposition home or self-care (01) ==
LOC: EME 08:41
DX: R19.7 Diarrhea, unspecified (principal); K50.90 Crohn's disease, unspecified, without complications; R30.0 Dysuria; Z87.440 Personal history of urinary (tract) infections; Z87.442 Personal history of urinary calculi; Z90.49 Acquired absence of other specified parts of digestive tract; I10 Essential (primary) hypertension; Z86.711 Personal history of pulmonary embolism; Z79.01 Long term (current) use of anticoagulants; Z88.1 Allergy status to other antibiotic agents; Z88.2 Allergy status to sulfonamides; F17.200 Nicotine dependence, unspecified, uncomplicated
CPT/HCPCS: 80048; 81003; 85027; 87086; 99281; 99283; J1100

== ENCOUNTER 2018-04-06 20:31 | Emergency (ER) | payer OTHER ==
[~2018-04-06] VITALS: Ht 152.4 cm; Wt 59.0 kg
[~2018-04-06 20:31] MED LIST changes: +PREDNISONE5 M1 PO
[2018-04-06 20:33] VITALS: BP 229/130
[2018-04-06 21:25] LABS: BASOPHIL (%) 0.5 % (0-1); BASOPHIL COUNT 0.1 K/uL (0-0.1); EOSINOPHIL (%) 5.9 % (0-5); EOSINOPHIL COUNT 0.6 K/uL (0-0.3); HEMOGLOBIN 10.6 G/DL (11.9-15.5); IMMATURE GRANULOCYTE (%) 0.5 % (0.0-0.7); LYMPHOCYTE (%) 21.7 % (15-42); LYMPHOCYTE COUNT 2.2 K/uL (1.0-2.8); MCHC 33.1 G/DL (30.0-36.0); MCV 87.7 FL (83-99); MONOCYTE (%) 7.4 % (3-12); MONOCYTE COUNT 0.8 K/uL (0-0.8); NEUTROPHIL COUNT 6.5 K/uL (1.8-6.4); RBC DIS.WIDTH-CV 14.5 % (11.8-14.6); RBC DIS.WIDTH-SD 46.1 % (39-53); RED BLOOD COUNT 3.65 M/uL (3.80-5.20); WHITE BLOOD COUNT 10.1 K/uL (4.1-10.2)
[2018-04-06 21:28] LABS: PLATELET COUNT 300 K/uL (156-360)
[2018-04-06 21:34] LABS: ALBUMIN 3.7 g/dL (3.2-4.8)
[2018-04-06 21:35] LABS: CHLORIDE 102 mEq/L (99-109); POTASSIUM 2.6 mEq/L (3.7-5.4); SODIUM 136 mEq/L (136-147)
[2018-04-06 21:37] LABS: GLUCOSE 111 mg/dL (70-99); TOTAL PROTEIN 7.6 g/dL (6.4-8.3)
[2018-04-06 21:39] LABS: TOTAL BILIRUBIN 0.7 mg/dL (0.0-1.0)
[2018-04-06 21:40] LABS: ALKALINE PHOSPHATASE 77 IU/L (3-129)
[2018-04-06 21:41] LABS: CREATININE 0.8 mg/dL (0.6-1.3); GFR ESTIMATE (CALCULATED) > 59 mL/min/
[2018-04-06 21:42] LABS: AST (GOT) 8 IU/L (2-34); UREA NITROGEN (BUN) 5 mg/dL (9-23)
[2018-04-06 21:44] LABS: ALT (GPT) 8 IU/L (3-49)
[2018-04-06 21:47] LABS: TROP-I INTERPRETATION NEGATIVE; TROPONIN-I < 0.01 ng/mL (0.0-0.30)
[2018-04-06 23:42] LABS: APPEARANCE CLEAR ((CLEAR)); BILIRUBIN NEGATIVE; BLOOD NEGATIVE; COLOR STRAW ((YELLOW)); GLUCOSE (STRIP) NEGATIVE; KETONES NEGATIVE; LEUKOCYTES NEGATIVE; NITRITE NEGATIVE; PROTEIN (STRIP) NEGATIVE; SPECIFIC GRAVITY 1.055 (1.000-1.030); UCUL ADDED? NO; UROBILINOGEN 0.2 MG/DL (0.2-1.0)
== END 2018-04-07 00:40 | disposition home or self-care (01) ==
LOC: EME 20:31
PROVIDERS: Emergency Medicine
DX: R10.9 Unspecified abdominal pain (principal); M54.6 Pain in thoracic spine; E87.6 Hypokalemia; K50.90 Crohn's disease, unspecified, without complications; R19.7 Diarrhea, unspecified; R06.02 Shortness of breath; R91.8 Other nonspecific abnormal finding of lung field; I51.7 Cardiomegaly; N28.1 Cyst of kidney, acquired; Z86.711 Personal history of pulmonary embolism; Z86.718 Personal history of other venous thrombosis and embolism; Z79.01 Long term (current) use of anticoagulants; Z90.49 Acquired absence of other specified parts of digestive tract; Z93.2 Ileostomy status; Z87.440 Personal history of urinary (tract) infections; F17.200 Nicotine dependence, unspecified, uncomplicated
CPT/HCPCS: 71045; 71275; 74177; 80053; 81003; 84484; 85025; 85610; 93005; 99281; 99285; J2060; J3010; J3480

== ENCOUNTER 2018-04-11 06:05 | Emergency (ER) | payer OTHER ==
[~2018-04-11] VITALS: Ht 152.4 cm; Wt 73.3 kg
[2018-04-11 09:04] LABS: BASOPHIL (%) 0.4 % (0-1); EOSINOPHIL (%) 3.7 % (0-5); EOSINOPHIL COUNT 0.4 K/uL (0-0.3); HEMATOCRIT 31.8 % (36.0-46.0); HEMOGLOBIN 10.7 G/DL (11.9-15.5); IMMATURE GRANULOCYTE (%) 0.8 % (0.0-0.7); LYMPHOCYTE (%) 26.4 % (15-42); LYMPHOCYTE COUNT 2.6 K/uL (1.0-2.8); MCH 29.7 PG (29.0-34.0); MCHC 33.6 G/DL (30.0-36.0); MCV 88.3 FL (83-99); MONOCYTE COUNT 0.6 K/uL (0-0.8); NEUTROPHIL (%) 62.7 % (45-76); NEUTROPHIL COUNT 6.1 K/uL (1.8-6.4); PLATELET COUNT 311 K/uL (156-360); RBC DIS.WIDTH-SD 47.6 % (39-53); WHITE BLOOD COUNT 9.7 K/uL (4.1-10.2)
[2018-04-11 09:18] LABS: ALBUMIN 3.6 g/dL (3.2-4.8); CHLORIDE 109 mEq/L (99-109)
[2018-04-11 09:19] LABS: SODIUM 143 mEq/L (136-147)
[2018-04-11 09:20] LABS: GLUCOSE 97 mg/dL (70-99)
[2018-04-11 09:24] LABS: ALKALINE PHOSPHATASE 69 IU/L (3-129); CREATININE 0.7 mg/dL (0.6-1.3); GFR ESTIMATE (CALCULATED) > 59 mL/min/
[2018-04-11 09:25] LABS: AST (GOT) 8 IU/L (2-34); UREA NITROGEN (BUN) 5 mg/dL (9-23)
[2018-04-11 09:27] LABS: ALT (GPT) 7 IU/L (3-49); TOTAL BILIRUBIN 0.5 mg/dL (0.0-1.0)
[2018-04-11 09:43] LABS: APPEARANCE CLEAR ((CLEAR)); BILIRUBIN NEGATIVE; BLOOD NEGATIVE; COLOR YELLOW ((YELLOW)); GLUCOSE (STRIP) NEGATIVE; KETONES NEGATIVE; LEUKOCYTES NEGATIVE; NITRITE NEGATIVE; PROTEIN (STRIP) NEGATIVE; SPECIFIC GRAVITY 1.016 (1.000-1.030); UCUL ADDED? NO; UROBILINOGEN 0.2 MG/DL (0.2-1.0)
[2018-04-11 11:00] VITALS: BP 170/98
== END 2018-04-11 11:30 | disposition home or self-care (01) ==
LOC: EME 06:05
PROVIDERS: Emergency Medicine
DX: R25.2 Cramp and spasm (principal); E87.6 Hypokalemia; R11.2 Nausea with vomiting, unspecified; R19.7 Diarrhea, unspecified; K50.90 Crohn's disease, unspecified, without complications; Z90.49 Acquired absence of other specified parts of digestive tract; I10 Essential (primary) hypertension; Z87.442 Personal history of urinary calculi; Z86.711 Personal history of pulmonary embolism; Z79.01 Long term (current) use of anticoagulants; Z88.1 Allergy status to other antibiotic agents; Z88.2 Allergy status to sulfonamides; F17.200 Nicotine dependence, unspecified, uncomplicated
CPT/HCPCS: 80053; 81003; 85025; J3010; J7030